=== PATIENT | female | born 1945 | race African-American/Black ===

== ENCOUNTER → 2016-08-13 | Outpatient (CLI) | payer OTHER ==
[~2016-08-13] MED LIST: AMARYL2 MG; AMOXICILLIN 50500 M1 PO; ATENOLOL 50 MG50 M1 PO; ATORVASTATIN CA10 MG; BENICAR HCT 401 EACH; BENICAR20 MG PO; FISH OIL 1,0001 EAC5; MEDROL DOSPAK21 TAB PO; NORFLEX100 MG PO; TRAMADOL 50 MG50 MG PO; [UNRECOGNIZED DRUG - OTHER]; [UNRECOGNIZED DRUG - OTHER]
== END ==
LOC: RAD 01:07
DX: Z12.31 Encounter for screening mammogram for malignant neoplasm of breast (principal)

== ENCOUNTER → 2016-08-23 | Outpatient (CLI) | payer OTHER | LOC: RAD 04:02 | DX: R92.1 Mammographic calcification found on diagnostic imaging of breast (principal) ==

== ENCOUNTER → 2017-02-04 | Outpatient (CLI) | payer OTHER | LOC: RAD 12:15 | DX: R92.0 Mammographic microcalcification found on diagnostic imaging of breast (principal) ==

== ENCOUNTER → 2017-08-07 | Outpatient (CLI) | payer OTHER | LOC: RAD 08-01 14:38 | DX: R92.1 Mammographic calcification found on diagnostic imaging of breast (principal) ==

== ENCOUNTER → 2017-08-16 | Outpatient (CLI) | payer OTHER ==
--- NOTE | ~2017-08-16 | S ---
[facility] [place] [address] SURGICAL PATH RPT PROCEDURE Name: MONICA GUIDRY Room #: REG BAMBI Samira..#: [id number] Admission: 08/16/17 Date of : 49 Discharge: Report #: [id number] Path Case #: [id number] PATHOLOGY REPORT COLLECTION DATE: 08/16/2017 RECEIVED DATE: 08/16/2017 SUBMITTING PHYS: Dr. Tyrese Hartley OTHER PHYS: Dr. Keila David SPECIMEN(S) RECEIVED: A.Right breast medial calcifications * * * * * * * * * * * * FINAL DIAGNOSIS: Breast, right breast medial calcifications, stereotactic needle core biopsy: - Calcified fibroadenoma showing coarse calcifications. - Background breast tissue showing dilated ducts along with usual ductal hyperplasia and apocrine metaplasia. - Negative for malignancy. COMMENT: Slide A3 only co-reviewed by Dr. Kevin Perea. (IUV:mml; 08/19/2017) PATHOLOGIST: Karen Navarro M.D. REPORT ELECTRONICALLY SIGNED BY: Karen Navarro M.D. DATE/TIME: 08/19/2017 13:43 * * * * * * * * * * * * GROSS PATHOLOGY: Received in formalin labeled "Monica Guidry, right breast calcifications," are multiple needle cores of yellow-oakes fibrofatty tissue measuring 2.9 x 2.4 x 0.5 cm in aggregate dimensions. Also received is a plastic cassette containing multiple cores of yellow-oakes fibrofatty tissue measuring 2.5 x 1.1 x 0.5 cm in aggregate dimensions. The tissue in the cassette is transferred to cassette A3, and the remaining tissue is submitted in its entirety in cassettes A1-A2. The cold ischemic time is 5 minutes. The total formalin fixation time is greater than 6 hours and less than 72 hours. (SDY; 08/16/2017) CLINICAL HISTORY: Right breast calcifications [facility] [address] [facility] [place] [address] SURGICAL PATH RPT PROCEDURE Name: MONICA GUIDRY Room #: REG [facility] M..#: [id number] Admission: 08/16/17 Date of : 49 Discharge: Report #: [id number] Path Case #: [id number] INITIAL CPT CODE(S): A; 20612 Professional services [address] by [facility] [address], [place] [address] Technical services performed by [facility] at [address] [place] [address], [facility] [address] [address]. [facility] [place] [address] PHONE: [phone] DIRECTOR: Aubrey Azul M.D. * * * END OF REPORT * * *
== END ==
LOC: RAD 01:05 → RADSTEREO 01:05
DX: D24.1 Benign neoplasm of right breast (principal); R92.0 Mammographic microcalcification found on diagnostic imaging of breast

== ENCOUNTER → 2018-02-19 | Outpatient (CLI) | payer OTHER | LOC: RAD 10:02 | DX: N60.91 Unspecified benign mammary dysplasia of right breast (principal); R92.1 Mammographic calcification found on diagnostic imaging of breast; I10 Essential (primary) hypertension; E11.9 Type 2 diabetes mellitus without complications ==

== ENCOUNTER → 2018-08-15 | Outpatient (CLI) | payer OTHER | LOC: RAD 04:23 | DX: N63.24 Unspecified lump in the left breast, lower inner quadrant (principal); N60.42 Mammary duct ectasia of left breast; R92.8 Other abnormal and inconclusive findings on diagnostic imaging of breast ==

== ENCOUNTER → 2018-10-16 | Outpatient (CLI) | payer OTHER | LOC: ULTRA 01:03 | DX: N63.20 Unspecified lump in the left breast, unspecified quadrant (principal) ==

== ENCOUNTER → 2018-12-24 | Outpatient (CLI) | payer OTHER | LOC: ULTRA 00:41 | DX: N63.42 Unspecified lump in left breast, subareolar (principal) ==

== ENCOUNTER → 2019-07-10 | Outpatient (CLI) | payer OTHER | LOC: ULTRA 09:29 | DX: N63.20 Unspecified lump in the left breast, unspecified quadrant (principal) ==

== ENCOUNTER → 2019-07-10 | Outpatient (CLI) | payer OTHER | LOC: CAT 09:36 | DX: Z13.6 Encounter for screening for cardiovascular disorders (principal); E78.00 Pure hypercholesterolemia, unspecified; I25.10 Atherosclerotic heart disease of native coronary artery without angina pectoris ==

== ENCOUNTER → 2020-01-12 | Outpatient (CLI) | payer OTHER | LOC: RAD 11:04 | PROVIDERS: ATTEND Family Medicine | DX: Z12.31 Encounter for screening mammogram for malignant neoplasm of breast (principal) ==

== ENCOUNTER → 2020-12-28 | Outpatient (CLI) | payer OTHER | LOC: BC 10:35 | PROVIDERS: ATTEND Family Medicine | DX: Z12.31 Encounter for screening mammogram for malignant neoplasm of breast (principal) ==